=== PATIENT | female | born 1980 | race Caucasian/White ===

== ENCOUNTER 2023-07-19 08:37 | Outpatient (CLI) | payer MEDICAID | END 2023-07-19 08:38 | disposition home or self-care (01) | LOC: ULT 08:37 | PROVIDERS: ATTEND Family Medicine | DX: N92.0 Excessive and frequent menstruation with regular cycle (principal); N94.6 Dysmenorrhea, unspecified; Z90.49 Acquired absence of other specified parts of digestive tract | CPT/HCPCS: 76700; 76856 ==